=== PATIENT | female | born 1940 | race Caucasian/White ===

== ENCOUNTER 2017-05-27 07:34 | Outpatient (CLI) | payer MEDICARE, OTHER ==
[2017-05-27 11:36] LABS: BASOPHILS % (AUTO) 0.6 %; EOSINOPHILS # (AUTO) 0.1 10^3/uL (0.0-0.7); MEAN PLATELET VOLUME 9.8 fL (7.9-10.8); MONOCYTES # (AUTO) 0.4 10^3/uL (0.0-1.0); UNCORRECTED WHITE BLOOD COUNT 5.9 x10^3/uL; WHITE BLOOD COUNT 5.9 x10^3/uL (4.8-10.8)
[2017-05-27 11:39] LABS: EOSINOPHILS % (AUTO) 1.9 %; HCT - HEMATOCRIT 43.9 % (37.0-47.0); HGB - HEMOGLOBIN 14.6 g/dL (12.0-16.0); LYMPHOCYTES # (AUTO) 1.8 10^3/uL (1.5-3.5); LYMPHOCYTES % (AUTO) 30.7 %; MEAN CORPUSCULAR HGB CONC 33.3 g/dL (32.0-36.0); MONOCYTES % (AUTO) 6.7 %; NEUTROPHILS # (AUTO) 3.6 10^3/uL (1.5-6.6); NEUTROPHILS % (AUTO) 60.1 %; NUCLEATED RED BLOOD CELLS AUTO 0.1 /100WBC; RED BLOOD COUNT 4.71 10^6/uL (4.20-5.40); RED CELL DISTRIBUTION WIDTH 12.5 % (12.0-15.0)
[2017-05-27 11:44] LABS: ALBUMIN/GLOBULIN RATIO 1.6 (1.0-2.2); BILIRUBIN,TOTAL 0.7 mg/dL (0.2-1.0); CALCIUM 9.1 mg/dL (8.5-10.3); CREATININE 0.7 mg/dL (0.4-1.0); TOTAL PROTEIN 6.6 g/dL (6.7-8.2)
== END 2017-05-27 07:35 | disposition home or self-care (01) ==
LOC: LAB.F 07:34
PROVIDERS: ATTEND Family Medicine
DX: Z51.81 Encounter for therapeutic drug level monitoring (principal)
CPT/HCPCS: 36415; 80053; 85025

== ENCOUNTER 2017-06-19 11:20 | Outpatient (CLI) | payer MEDICARE, OTHER ==
[2017-06-19 18:23] LABS: BASOPHILS # (AUTO) 0.1 10^3/uL (0.0-0.1); EOSINOPHILS # (AUTO) 0.1 10^3/uL (0.0-0.7); EOSINOPHILS % (AUTO) 1.5 %; HCT - HEMATOCRIT 41.8 % (37.0-47.0); HGB - HEMOGLOBIN 14.2 g/dL (12.0-16.0); LYMPHOCYTES # (AUTO) 1.8 10^3/uL (1.5-3.5); LYMPHOCYTES % (AUTO) 28.4 %; MEAN CORPUSCULAR HEMOGLOBIN 31.7 pg (27.0-31.0); MEAN CORPUSCULAR VOLUME 93.4 fL (81.0-99.0); MONOCYTES # (AUTO) 0.5 10^3/uL (0.0-1.0); MONOCYTES % (AUTO) 7.9 %; NEUTROPHILS # (AUTO) 3.9 10^3/uL (1.5-6.6); NEUTROPHILS % (AUTO) 61.2 %; NUCLEATED RED BLOOD CELLS AUTO 0.1 /100WBC; RED BLOOD COUNT 4.47 10^6/uL (4.20-5.40); RED CELL DISTRIBUTION WIDTH 12.4 % (12.0-15.0); UNCORRECTED WHITE BLOOD COUNT 6.3 x10^3/uL; WHITE BLOOD COUNT 6.3 x10^3/uL (4.8-10.8)
[2017-06-19 18:46] LABS: ALBUMIN/GLOBULIN RATIO 1.7 (1.0-2.2); BILIRUBIN,TOTAL 0.7 mg/dL (0.2-1.0); BUN - BLOOD UREA NITROGEN 17 mg/dL (6-20); CARBON DIOXIDE - CO2 27 mmol/L (21-32); CHLORIDE 104 mmol/L (101-111); CHOL/HDL RATIO 2.4 (<4.4); CHOLESTEROL 191 mg/dL; CREATININE 0.7 mg/dL (0.4-1.0); GFR - MDRD 81 (>89); GLUCOSE 93 mg/dL (70-100); HDL CHOLESTEROL 78 mg/dL; POTASSIUM 4.3 mmol/L (3.5-5.0); SODIUM 138 mmol/L (135-145); TOTAL PROTEIN 6.5 g/dL (6.7-8.2); TRIGLYCERIDES 190 mg/dL; VLDL CHOLESTEROL 38 mg/dL
== END 2017-06-19 11:21 | disposition home or self-care (01) ==
LOC: LAB.F 11:20
PROVIDERS: ATTEND Family Medicine
DX: I10 Essential (primary) hypertension (principal); E78.5 Hyperlipidemia, unspecified; D75.9 Disease of blood and blood-forming organs, unspecified
CPT/HCPCS: 36415; 80053; 80061; 85025

== ENCOUNTER 2017-10-16 18:52 | Outpatient (CLI) | payer MEDICARE, OTHER ==
--- NOTE | 2017-10-17 18:21 | XRAY Report ---
EXAM: SACRUM AND COCCYX RADIOGRAPHY EXAM DATE: 10/16/2017 07:12 PM. HISTORY: CONSTIPATION, ABDOMINAL PAIN, FALL. COMPARISONS: Sacrococcyx radiographs 06/07/2013. TECHNIQUE: 2 views. FINDINGS: There are bilateral hip prostheses. Alignment appears anatomic. No acute bone findings. No sacral iliac joint sclerosis. IMPRESSION: Bilateral hip prostheses. No acute findings. [facility] Referring Provider Line: [phone] SITE ID: [id number]
--- NOTE | 2017-10-17 18:28 | XRAY Report ---
EXAM: ABDOMEN RADIOGRAPHY EXAM DATE: 10/16/2017 07:12 PM. CLINICAL HISTORY: CONSTIPATION, ABDOMINAL PAIN, FALL. COMPARISON: None. TECHNIQUE: 3 views. FINDINGS: Lung Bases: Unremarkable. Bowel Gas Pattern: There are dilated loops of small bowel with differential air-fluid levels. No obvi ous free air. No definite urologic calcifications are seen. IMPRESSION: Likely small bowel obstruction versus ileus. [facility] Referring Provider Line: [phone] SITE ID: [id number]
== END 2017-10-16 18:53 | disposition home or self-care (01) ==
LOC: DI 18:52
PROVIDERS: ATTEND Nurse Practitioner Family
DX: K59.00 Constipation, unspecified (principal); Z96.643 Presence of artificial hip joint, bilateral
CPT/HCPCS: 72220; 74019

== ENCOUNTER 2017-10-19 13:30 | Outpatient (CLI) | payer MEDICARE, OTHER ==
[2017-10-19] MEDS ORDERED: IOPAMIDOL-300 50 ML VIAL ONE (13:46)
[2017-10-19] MEDS ORDERED: IOPAMIDOL-300 100 ML VIAL ONE (13:46)
[2017-10-19 14:13] LABS: CREATININE 0.7 mg/dL (0.4-1.0)
[2017-10-19] MEDS ORDERED: IOPAMIDOL-300 100 ML VIAL IVP ONE (15:05)
[2017-10-19] MEDS ORDERED: IOPAMIDOL-300 50 ML VIAL PO ONE (15:05)
--- NOTE | 2017-10-19 18:56 | CT Report ---
DATE OF SERVICE: 10/19/2017 CT ABDOMEN AND PELVIS WITH CONTRAST: 10/19/2017 CLINICAL INDICATION: Possible bowel obstruction on plain film 10/16/2017, constipation. TECHNIQUE: Axial CT images of the abdomen and pelvis were obtained with 100 mL Isovue 300 intravenously as well as oral contrast. In accordance with CT protocol optimization, one or more of the following dose reduction techniques were utilized for this exam: Automated exposure control, adjustment of mA and/or KV based on patient size, or use of iterative reconstructive technique. COMPARISON: Plain film 10/16/2017. FINDINGS: Limited evaluation of the lung bases demonstrates mild atelectasis. ABDOMEN: The liver, spleen, pancreas, kidneys and adrenal glands are unremarkable. The gallbladder is not dilated. There is a [id number] amount of stool throughout the colon, without abnormal colonic dilatation. No small bowel dilatation is present. No free gas, free fluid, or abdominal adenopathy is seen. PELVIS: Sigmoid diverticulosis is present, without CT evidence of diverticulitis. Postoperative changes of hysterectomy are noted. No pelvic adenopathy or free fluid is present. Osseous structures demonstrate a mild anterior wedge compression of L1. Changes of bilateral hip replacements and degenerative changes are also noted. IMPRESSION: CONSTIPATION. NO EVIDENCE OF BOWEL OBSTRUCTION. MILD L1 COMPRESSION FRACTURE, WITHOUT EVIDENCE OF RETROPULSION OR SPINAL STENOSIS. TD: 10/19/2017 19:55
== END 2017-10-19 13:31 | disposition home or self-care (01) ==
LOC: LAB 13:30
PROVIDERS: ATTEND Physician Assistant Medical
DX: K59.00 Constipation, unspecified (principal)
CPT/HCPCS: 36415; 74177; 82565; Q9967

== ENCOUNTER 2017-11-05 13:05 | Outpatient (CLI) | payer MEDICARE, OTHER ==
[2017-11-05 17:45] LABS: BASOPHILS # (AUTO) 0.1 10^3/uL (0.0-0.1); BASOPHILS % (AUTO) 0.7 %; EOSINOPHILS # (AUTO) 0.2 10^3/uL (0.0-0.7); EOSINOPHILS % (AUTO) 2.3 %; HGB - HEMOGLOBIN 13.7 g/dL (12.0-16.0); LYMPHOCYTES # (AUTO) 1.9 10^3/uL (1.5-3.5); LYMPHOCYTES % (AUTO) 25.7 %; MEAN CORPUSCULAR HGB CONC 33.4 g/dL (32.0-36.0); MEAN CORPUSCULAR VOLUME 92.8 fL (81.0-99.0); MEAN PLATELET VOLUME 9.6 fL (7.9-10.8); MONOCYTES # (AUTO) 0.4 10^3/uL (0.0-1.0); MONOCYTES % (AUTO) 4.9 %; NEUTROPHILS % (AUTO) 66.4 %; PLT - PLATELET COUNT 282 10^3/uL (130-450); RED BLOOD COUNT 4.41 10^6/uL (4.20-5.40); RED CELL DISTRIBUTION WIDTH 12.8 % (12.0-15.0); WHITE BLOOD COUNT 7.5 x10^3/uL (4.8-10.8)
[2017-11-05 17:58] LABS: BILIRUBIN,URINE NEGATIVE (NEGATIVE); GLUCOSE, URINE (UA) NEGATIVE (NEGATIVE); KETONES,URINE (UA) NEGATIVE (NEGATIVE); LEUKOCYTE ESTERASE, URINE NEGATIVE (NEGATIVE); NITRITE,URINE NEGATIVE (NEGATIVE); OCCULT BLOOD,URINE NEGATIVE (NEGATIVE); PROTEIN,URINE NEGATIVE (NEGATIVE); UROBILINOGEN,URINE 0.2 (NORMAL) E.U./dL (NORMAL)
[2017-11-05 18:02] LABS: CLARITY,URINE CLEAR (CLEAR)
[2017-11-05 18:06] LABS: RBC,URINE None Seen /HPF (0-5)
[2017-11-05 18:07] LABS: BACTERIA,URINE None Seen /HPF (None Seen); MUCUS,URINE Few Strands; SQUAMOUS EPITHELIAL CELL,UR FEW Squamous (<= Few)
[2017-11-05 18:18] LABS: ALBUMIN 3.9 g/dL (3.2-5.5); ALBUMIN/GLOBULIN RATIO 1.3 (1.0-2.2); BILIRUBIN,TOTAL 0.4 mg/dL (0.2-1.0); CALCIUM 9.2 mg/dL (8.5-10.3); CREATININE 0.7 mg/dL (0.4-1.0); TOTAL PROTEIN 6.8 g/dL (6.7-8.2)
== END 2017-11-05 13:06 | disposition home or self-care (01) ==
LOC: LAB.F 13:05
PROVIDERS: ATTEND Family Medicine
DX: Z01.812 Encounter for preprocedural laboratory examination (principal); I10 Essential (primary) hypertension; E78.5 Hyperlipidemia, unspecified; G62.9 Polyneuropathy, unspecified
CPT/HCPCS: 36415; 80053; 81001; 85025; 85610

== ENCOUNTER 2018-01-27 09:41 | Outpatient (CLI) | payer MEDICARE, OTHER | END 2018-01-27 09:42 | disposition home or self-care (01) | LOC: LAB.R 09:41 | PROVIDERS: ATTEND Family Medicine | DX: N39.0 Urinary tract infection, site not specified (principal) | CPT/HCPCS: 87086 ==

== ENCOUNTER 2018-02-25 07:11 | Outpatient (CLI) | payer MEDICARE, OTHER ==
[2018-02-25 11:06] LABS: ALT ALANINE AMINOTRANSFERASE 15 IU/L (10-60); AST ASPARTATE AMINOTRANSFERASE 26 IU/L (10-42); CHOLESTEROL 196 mg/dL; CK- CREATINE KINASE 116 IU/L (22-269); HDL CHOLESTEROL 96 mg/dL; LDL CHOLESTEROL,CALCULATED 82 mg/dL; LDL CHOLESTEROL,DIRECT 80 mg/dL; LDL/HDL RATIO 0.9 (<4.4); VLDL CHOLESTEROL 18 mg/dL
== END 2018-02-25 07:12 | disposition home or self-care (01) ==
LOC: LAB.F 07:11
PROVIDERS: ATTEND Internal Medicine Cardiovascular Disease
DX: E78.5 Hyperlipidemia, unspecified (principal)
CPT/HCPCS: 36415; 80061; 82550; 83721; 84450; 84460

== ENCOUNTER 2018-10-01 10:35 | Outpatient (CLI) | payer MEDICARE, OTHER | END 2018-10-01 10:36 | disposition EMS.NT | LOC: EMS 10:35 | PROVIDERS: ATTEND Surgery | DX: R39.89 Other symptoms and signs involving the genitourinary system (principal) ==

== ENCOUNTER 2018-10-18 08:59 | Outpatient (CLI) | payer MEDICARE, OTHER ==
[2018-10-18 18:27] LABS: ALT ALANINE AMINOTRANSFERASE 18 IU/L (10-60); AST ASPARTATE AMINOTRANSFERASE 22 IU/L (10-42); CHOL/HDL RATIO 2.7 (<4.4); CHOLESTEROL 197 mg/dL; CK- CREATINE KINASE 59 IU/L (22-269); HDL CHOLESTEROL 73 mg/dL; LDL CHOLESTEROL,CALCULATED 108 mg/dL; LDL CHOLESTEROL,DIRECT 113 mg/dL; LDL/HDL RATIO 1.5 (<4.4); VLDL CHOLESTEROL 16 mg/dL
== END 2018-10-18 23:59 ==
LOC: LAB.S 08:59
PROVIDERS: ATTEND Internal Medicine Cardiovascular Disease
DX: E78.5 Hyperlipidemia, unspecified (principal); I49.8 Other specified cardiac arrhythmias
CPT/HCPCS: 36415; 80061; 82550; 83721; 84450; 84460

== ENCOUNTER 2018-12-20 08:00 | Outpatient (CLI) | payer MEDICARE, OTHER ==
[2018-12-20 11:31] LABS: ALT ALANINE AMINOTRANSFERASE 16 IU/L (10-60); AST ASPARTATE AMINOTRANSFERASE 26 IU/L (10-42); CHOL/HDL RATIO 2.5 (<4.4); CHOLESTEROL 207 mg/dL; CK- CREATINE KINASE 80 IU/L (22-269); HDL CHOLESTEROL 82 mg/dL; LDL CHOLESTEROL,CALCULATED 107 mg/dL; LDL CHOLESTEROL,DIRECT 117 mg/dL; LDL/HDL RATIO 1.3 (<4.4); VLDL CHOLESTEROL 18 mg/dL
== END 2018-12-20 23:59 | disposition home or self-care (01) ==
LOC: LAB.S 08:00
PROVIDERS: ATTEND Internal Medicine Cardiovascular Disease
DX: E78.5 Hyperlipidemia, unspecified (principal)
CPT/HCPCS: 36415; 80061; 82550; 83721; 84450; 84460

== ENCOUNTER 2019-03-14 10:53 | Outpatient (CLI) | payer MEDICARE, OTHER ==
[2019-03-14 17:37] LABS: ALT ALANINE AMINOTRANSFERASE 19 IU/L (10-60); AST ASPARTATE AMINOTRANSFERASE 26 IU/L (10-42); CHOL/HDL RATIO 2.2 (<4.4); CHOLESTEROL 193 mg/dL; CK- CREATINE KINASE 146 IU/L (22-269); HDL CHOLESTEROL 86 mg/dL; LDL CHOLESTEROL,CALCULATED 93 mg/dL; LDL CHOLESTEROL,DIRECT 99 mg/dL; LDL/HDL RATIO 1.1 (<4.4); VLDL CHOLESTEROL 14 mg/dL
== END 2019-03-14 23:59 | disposition home or self-care (01) ==
LOC: LAB.S 10:53
PROVIDERS: ATTEND Internal Medicine Cardiovascular Disease
DX: E78.5 Hyperlipidemia, unspecified (principal)
CPT/HCPCS: 36415; 80061; 82550; 83721; 84450; 84460